=== PATIENT | male | born 1970 | race Caucasian/White ===

== ENCOUNTER 2018-02-16 04:02 | Emergency (ER) | payer OTHER ==
[~2018-02-16] VITALS: Ht 170.2 cm; Wt 84.0 kg
[2018-02-16] MEDS ORDERED: IBUPROFEN 600MG TABLET PO ONE (05:30)
[2018-02-16] MEDS ORDERED: VISCOUS LIDOCAINE 2% 15 ML UDC MM STA (06:26)
[2018-02-16 06:29] VITALS: BP 147/103
== END 2018-02-16 07:10 | disposition home or self-care (01) ==
LOC: ER 04:02
DX: J02.9 Acute pharyngitis, unspecified (principal)
CPT/HCPCS: 93005; 99284